=== PATIENT | male | born 1960 | race Caucasian/White ===

== ENCOUNTER → 2017-04-26 | Day surgery (SDC) | payer OTHER ==
[~2017-04-26] VITALS: Ht 177.8 cm; Wt 80.7 kg
[~2017-04-26] MED LIST: ACET325T9 PO; BALS750C6 PO; BUPIVACAINE MPF 0.5% 30 ML VIAL. ONE; BUSP15TA PO; CARB200T PO; CICL6.1H3 IH; DEXAMETHASONE SOD PHOS 20 MG/5 ML VIAL. ONE; DIPH50CA PO; EPINEPHrine VIAL 30 MG/30 ML VIAL ONE; GEMF600T3 PO; HYDROmorphone 2 MG/ML VIAL IV PRN; IV RINGERS,LACTATED 1000ML 1,000 ML IV SCH; LAMO200T PO; LAMO300T2 PO; LEVO150T5 PO; LIDOCAINE 1% PF 2 ML VIAL. ID PRN; LIDOCAINE 1% PF 30 ML VIAL. ONE; LIDOCAINE 2% PF Vial for OR 5 ML VIAL. ONE; MIRT15TA PO; MONT10TA9 PO; MORPHINE SULFATE 2 MG/ML DISP.SYRIN. ONE; ONDANSETRON PF 4 MG/2 ML VIAL. IV PRN; ONDANSETRON PF 4 MG/2 ML VIAL. ONE; PROCHLORPERAZINE 10 MG/2 ML VIAL. IV PRN; PROPOFOL 20 ML IV ONE; RANI150T2 PO; SEVOFLURANE 31 TO 60 MINUTES. IH ONE; TRAM50TA PO; TRIA15OI TP; fentaNYL PF VIAL 100 MCG/2 ML VIAL IV PRN; fentaNYL PF VIAL 100 MCG/2 ML VIAL ONE; traMADol 50 MG TABLET PO PRN
--- NOTE | 2017-04-26 07:31 | DISCH ---
DISCHARGE INSTRUCTIONS Condition on Discharge Condition on Discharge: Stable Activity After Discharge Activity Instructions for Disc: No restrictions Bathing Instructions: Shower-keep dressing dry Weight Bearing Status after Di: As tolerated Diet after Discharge Diet after Discharge: Regular Wound Incision Care Wound/Incision Care: Ice to area for comfort, Keep wound/cast CDI, Change dressing Contacting the DRThomas after DC Call your doctor for: Concerns you may have Follow-Up Follow up with: Fernando in 2wks MOISÉS COLES II, MD Apr 26, 2017 07:31
--- NOTE | 2017-04-26 08:05 | PDOC ---
BRIEF OPERATIVE NOTE Date: Apr 26, 2017 Pre-Op Diagnosis L knee medial meniscus tear Post-Op Diagnosis same Procedure Performed L KS, PMM Surgeon [employer] none Anesthesiologist Roselyn Anesthesia Type: General, Local Complications none MOISÉS COLES II, MD Apr 26, 2017 08:05
[2017-04-26] MEDS: fentaNYL PF VIAL 100 MCG/2 ML VIAL IV PRN ×2 (08:10→08:34)
[2017-04-26] MEDS: MORPHINE SULFATE 2 MG/ML DISP.SYRIN. IV PRN ×2 (08:16→08:26)
--- NOTE | 2017-04-26 08:29 | OP ---
DATE OF SURGERY: 04/26/2017 DATE OF SERVICE: 04/26/2017 SURGEON: Sean Coles MD SENIOR PATROL AGENT: None. ANESTHESIA: General. PREOPERATIVE DIAGNOSIS: Left knee medial meniscus tear. POSTOPERATIVE DIAGNOSIS: Left knee medial meniscus tear. PROCEDURE PERFORMED: Arthroscopic left knee partial medial meniscectomy. ESTIMATED BLOOD LOSS: 5 mL. TOURNIQUET TIME: 30 minutes. COMPLICATIONS: None. FINDINGS: 1. The patient had grade 1 changes at his patella centrally. 2. Intact cartilage at medial compartment. 3. He had a complex medial meniscus tear involving the posterior portion of his meniscus. 4. Intact cruciate ligaments. 5. Intact lateral meniscus. 6. Intact lateral compartment cartilage. 7. No loose bodies. INDICATIONS: The patient is a 57-year-old inmate who had a medial left knee pain for quite some time. Please see our outpatient consult notes for full details. He had tried and failed conservative therapies including oral medications and intraarticular steroids. The steroids gave him some short-term relief. Because of this and MRI findings, we had discussion of risks, benefits, alternatives of the above surgery and he elected to proceed. DESCRIPTION OF PROCEDURE: The patient was greeted in the preoperative area by myself, where the correct extremity was marked and verified. He was taken to the operative suite and antibiotics were started enroute. Once in the OR, he was transferred gently supine to the OR table and secured to the bed with all pressure points padded. He underwent successful induction with general anesthetic. We applied a nonsterile tourniquet to his left upper thigh and taped it in place. He had a padded foot rest at the foot of the bed and a bolster laterally at his hip to maintain his knee in 90 degrees. Examination under anesthesia demonstrated knee that was stable to varus and valgus at 0 and 30 degrees. Negative Vania and no pivot glide. We then proceeded to prep and drape the left lower extremity in our usual sterile fashion and conducted a standard preoperative timeout. I then palpated, marked surface anatomy and exsanguinated the extremity with an Esmarch and insufflated the tourniquet to 250 mmHg. After this I made my standard anterolateral arthroscopic portal and introduced a blunt arthroscopic trocar into the suprapatellar pouch followed by the camera. I then conducted my diagnostic arthroscopy with the above noted findings: Upon entering the medial compartment, I used a spinal to localize the anteromedial portal and then incised skin in accordance with this. After this, I used a probe to assess his medial meniscus tear and then I debrided this back to stable edges with a combination of shaver and upbiter. I then inspected his knee to make sure there were no residual loose pieces. I then placed my camera and shaver in the suprapatellar pouch and performed repeated aspiration maneuvers with vigorous palpation of the posterior knee as well. I then removed all excess arthroscopic fluid and the arthroscopic instrumentation. The portals were closed with simple interrupted 2-0 nylon. I injected local anesthetic mixture into the periportal incision area. We then placed Xeroform gauze and ABD, sterile cast padding and Franky wrap to his left knee. The tourniquet was then let down. He was awakened from anesthesia and he tolerated the surgery well. No complications. At the conclusion of surgery, he was transferred to the PACU in stable and extubated condition. Postoperative plan is to weightbear as tolerated. He will be transferred back to the nursing home. He will follow up with me in 2 weeks, sooner should problems arise. SEAN COLES MD DR: THOMAS/jacob JOB#: [id number] / [id number]
[2017-04-26 08:35] VITALS: BP 131/61
== END | disposition home or self-care (01) ==
LOC: SURG 05:37 → EEVIPCON 07:30
PROVIDERS: ATTEND Orthopaedic Surgery Sports Medicine
DX: S83.242A Other tear of medial meniscus, current injury, left knee, initial encounter (principal); X58.XXXA Exposure to other specified factors, initial encounter; Y93.89 Activity, other specified; Y92.89 Other specified places as the place of occurrence of the external cause; Y99.8 Other external cause status; E78.00 Pure hypercholesterolemia, unspecified; I10 Essential (primary) hypertension; J44.9 Chronic obstructive pulmonary disease, unspecified; E03.9 Hypothyroidism, unspecified; Z87.39 Personal history of other diseases of the musculoskeletal system and connective tissue; Z86.39 Personal history of other endocrine, nutritional and metabolic disease; Z88.6 Allergy status to analgesic agent; Z88.2 Allergy status to sulfonamides; Z88.8 Allergy status to other drugs, medicaments and biological substances
CPT/HCPCS: 29881; C1782; J0171; J0690; J1100; J2270; J2405; J2704; J3010; J3490; J2001